=== PATIENT | male | born 1960 | race African-American/Black ===

== ENCOUNTER 2022-03-14 06:46 | Inpatient (IN) | payer MEDICAID ==
[~2022-03-14] VITALS: Ht 177.8 cm; Wt 109.9 kg
[2022-03-14] VITALS (12 sets, daily range): BP systolic 142–164; BP diastolic 69–92
[2022-03-14 07:24] LABS: BASOPHILS % (AUTO) 0.7 % (0.0-2.0); EOSINOPHILS % (AUTO) 5.3 % (1.0-6.0); HEMATOCRIT 39.7 % (41-53); HEMOGLOBIN 13.4 g/dL (13.5-17.5); LYMPHOCYTES # (AUTO) 2.3 K/uL (1.0-4.8); LYMPHOCYTES % (AUTO) 34.8 % (22.0-44.0); MEAN CORPUSCULAR HEMOGLOBIN 30.4 pg (26.0-34.0); MEAN CORPUSCULAR HGB CONC 33.7 G/dL (31.0-37.0); MEAN CORPUSCULAR VOLUME 90 fL (80-100); MONOCYTES # (AUTO) 0.9 K/uL (0.1-1.0); MONOCYTES % (AUTO) 13.4 % (2.0-9.0); NEUTROPHILS % (AUTO) 45.8 % (40.0-70.0); PLATELET COUNT (AUTO) 223 K/uL (150-450); RED CELL DISTRIBUTION WIDTH 13.9 % (11.5-14.5)
[2022-03-14 07:34] LABS: ANION GAP 9 mmol/L (8-16); CALCIUM, TOTAL 8.9 mg/dL (8.8-10.5); CARBON DIOXIDE 28 mmol/L (22-29); CHLORIDE 103 mmol/L (98-107); GLOMERULAR FILTR. RATE CALC > 60 mL/min (>60); GLUCOSE,RANDOM 131 mg/dL (70-110); SODIUM SERUM 140 mmol/L (136-145); UREA NITROGEN, BLOOD 7 mg/dL (7-18)
[2022-03-14 07:41] LABS: B-TYPE NATRIURETIC PEPTIDE 6 pg/mL (0-100)
[2022-03-14 07:59] LABS: ALANINE AMINOTRANSFERASE 44 U/L (12-78); ALBUMIN 3.6 g/dL (3.4-5.0); ALKALINE PHOSPHATASE 61 U/L (46-116); ASPARTATE AMINOTRANSFERASE 25 U/L (15-37); BILIRUBIN,TOTAL 0.6 mg/dL (0.1-1.0); CREATINE KINASE, TOTAL ONLY 292 U/L (39-308); TOTAL PROTEIN, SERUM 7.4 g/dL (6.4-8.2)
[2022-03-14] MEDS ORDERED: NITROGLYCERIN 2% (1 GM=INCH) PACKET TP ONE (08:30)
[2022-03-14] MEDS ORDERED: ASPIRIN 325 MG TABLET PO ONE (08:30)
[2022-03-14 09:55] LABS: COVID AG,FIA SOURCE NASOPHARYNGEAL
[2022-03-14 09:57] LABS: APPEARANCE,URINE CLEAR (CLEAR); BILIRUBIN,URINE NEGATIVE (NEGATIVE); GLUCOSE, URINE (UA) NEGATIVE (NEGATIVE); KETONES,URINE NEGATIVE (NEGATIVE); LEUKOCYTE ESTERASE ,URINE NEGATIVE (NEGATIVE); NITRATE,URINE NEGATIVE (NEGATIVE); OCCULT BLOOD,URINE NEGATIVE (NEGATIVE); PROTEIN,URINE TRACE mg/dL (NEGATIVE); SPECIFIC GRAVITIY, URINE 1.024 (1.003-1.030)
[2022-03-14] MEDS ORDERED: IOHEXOL 300 MG/ML 150 ML VIAL ONE (12:22)
[2022-03-14] MEDS ORDERED: IOHEXOL 300 MG/ML 100 ML VIAL ONE (12:22)
[2022-03-14] MEDS ORDERED: LIDOCAINE/PF 1% 30 ML VIAL ONE (12:22)
[2022-03-14] MEDS ORDERED: SODIUM BICARBONATE 50 MEQ/50 ML VIAL ONE (12:22)
[2022-03-14] MEDS ORDERED: HEPARIN SODIUM 1000 UNITS/NS 1,000 ML ONE (12:22)
[2022-03-14] MEDS ORDERED: IOHEXOL 300 MG/ML 50 ML VIAL ONE (12:22)
[2022-03-14] MEDS ORDERED: FentaNYL CITRATE PF 100 MCG/2 ML VIAL ONE (12:44)
[2022-03-14] MEDS ORDERED: MIDAZOLAM HCL 2 MG/2 ML VIAL ONE (12:44)
[2022-03-14] MEDS ORDERED: MIDAZOLAM HCL 2 MG/2 ML VIAL IVP ONE (13:00)
[2022-03-14] MEDS ORDERED: HEPARIN SODIUM 1000 UNITS/NS 1,000 ML IARTER ONE (13:00)
[2022-03-14] MEDS ORDERED: SODIUM CHLORIDE 0.9% 500 ML IV ONE (13:00)
[2022-03-14] MEDS ORDERED: IOHEXOL 300 MG/ML 150 ML VIAL IARTER ONE (13:00)
[2022-03-14] MEDS ORDERED: LIDOCAINE 1% 30 ML/SOD BICARB 8.4% 4 ML SQ ONE (13:00)
[2022-03-14] MEDS ORDERED: FentaNYL CITRATE PF 100 MCG/2 ML VIAL IVP ONE (13:00)
[2022-03-14] MEDS ORDERED: SODIUM CHLORIDE 0.9% 250 ML IV ONE (13:00)
[2022-03-14] MEDS ORDERED: SODIUM CHLORIDE 0.9% 1,000 ML IV ONE (14:30)
[2022-03-14] MEDS ORDERED: DiphenhydrAMINE HCL 50 MG CAPSULE PO ONE (16:30)
[2022-03-14] MEDS ORDERED: DIAZEPAM 5 MG TABLET PO ONE (16:30)
[2022-03-14] MEDS ORDERED: ASPIRIN 81 MG CHEWABLE TABLET PO ONE (16:30)
[2022-03-14] MEDS ORDERED: ROSU10TA72 PO (17:49)
[2022-03-14] MEDS ORDERED: TAMS-13 PO (17:49)
[2022-03-14] MEDS ORDERED: GABA-1216 PO (17:49)
[2022-03-14] MEDS ORDERED: SEMA0.25 SQ (17:49)
[2022-03-14] MEDS ORDERED: FINA-27 PO (17:49)
[2022-03-14] MEDS ORDERED: METF-1211 PO (17:49)
[2022-03-14] MEDS ORDERED: LOSA-381 PO (17:49)
[2022-03-14] MEDS ORDERED: TEST200V22 IM (17:49)
[2022-03-14] MEDS ORDERED: CARV12 PO (17:49)
== END 2022-03-14 19:00 | disposition home or self-care (01) | DRG 287 ==
LOC: EMS 06:48 → 5S 10:33
PROVIDERS: ADMIT Hospitalist; ATTEND Hospitalist
PROC: 4A023N7 Measurement of Cardiac Sampling and Pressure, Left Heart, Percutaneous Approach (ICD-10-PCS; principal; 2022-03-14)
PROC: B2111ZZ Fluoroscopy of Multiple Coronary Arteries using Low Osmolar Contrast (ICD-10-PCS; 2022-03-14)
PROC: B2151ZZ Fluoroscopy of Left Heart using Low Osmolar Contrast (ICD-10-PCS; 2022-03-14)
PROC: B41F1ZZ Fluoroscopy of Right Lower Extremity Arteries using Low Osmolar Contrast (ICD-10-PCS; 2022-03-14)
DX: R07.89 Other chest pain (principal); I10 Essential (primary) hypertension; E11.9 Type 2 diabetes mellitus without complications; Z20.822 Contact with and (suspected) exposure to COVID-19; E66.01 Morbid (severe) obesity due to excess calories; Z68.34 Body mass index [BMI] 34.0-34.9, adult; Z79.82 Long term (current) use of aspirin
CPT/HCPCS: 71045; 80053; 81003; 82550; 83880; 84484; 85025; 85610; 85730; 93005; 99285; J1644; J2250; J3010; J3490; Q9967; 36415-L1; 36415-TC